=== PATIENT | male | born 1955 | race Caucasian/White ===

== ENCOUNTER 2021-08-27 08:35 | Emergency (ER) | payer MEDICARE, SELFPAY ==
--- NOTE | 2021-08-27 09:11 | ECG_ITS ---
APPROVED REPORT Exam: Resting ECG HR:70 bpm ECG Measurements Heart Rate 70 AXES WY 148 P 61 QRSd 104 QRS -11 QT 382 T 14 QTc 402 Conclusion SINUS RHYTHM LOW QRS VOLTAGE IN PRECORDIAL LEADS [QRS DEFLECTION < 1.0 mV IN CHEST LEADS] PATTERN CONSISTENT WITH PULMONARY DISEASE ABNORMAL ECG UNCONFIRMED REPORT Electronically signed by : Edgard Anglin MD 09/01/2021 21:49:50
[2021-08-27 09:14] VITALS: RESP 18; TEMP 36.7; O2SAT 96; BMI 42.5
--- NOTE | 2021-08-27 09:21 | HMH.EDUTC ---
[facility] Disposition Clinical Impression: Episode of syncope Qualifiers: Syncope type: unspecified Qualified Code(s): R55 - Syncope and collapse Sinusitis Qualifiers: Sinusitis location: unspecified location Chronicity: acute Recurrence: non-recurrent Qualified Code(s): J01.90 - Acute sinusitis, unspecified Disposition: Home, Self-Care Condition on Discharge: Good Instructions: Fainting, DI for Sinusitis Additional Instructions: You need to have a cardiac work up through an ER. We are unable to do that here in the [facility]. I strongly urge you to allow us to transfer you there. Follow up with your primary care physician. GO TO THE ER FOR ANY WORSENING SYMPTOMS OR CONCERNS Prescriptions: guaiFENesin [Mucinex 600mg tablet] 1 - 2 tab PO BIDP PRN #30 tab PRN Reason: Congestion Transmission Status: Pending to [facility] # Azithromycin [Z-Dano 250mg Tab*] 250 mg PO UD DOSE PK #6 tab Transmission Status: Pending to [facility] # Referrals: Provider,Referral, MD [Primary Care Provider] - Time of Disposition: :31 Medical Decision Making - Medical Records Medical records reviewed: No: I reviewed the patient's medical records. - Thierno Inquiry Pt receiving controlled substance: No Vital Signs: 08/27/21 09:14 Temperature 98.0 F Temperature Source Oral Respiratory Rate 18 02 Sat by Pulse Oximetry 96 - ECG Data Tracing #1 I reviewed this ECG and interpreted as documented below: Sinus Rhythm @ 70. ECG initial impression date: 08/27/21 ECG initial impression time: 09:15 ECG normal with no acute: arrhythmias, ischemia, conduction abnormalities, chamber hypertrophy Normal Sinus Rhythm: Yes ECG compared to prior tracings: there are no prior tracings available for comparison Medical Decision Narrative: His EKG showed a moderate intraventricular conduction delay. Otherwise, it was essentially normal. He denies any chest pain at this time. I tried to explain to him that it would be in his best interest to be evaluated in the ER for a cardiac workup. He refused and sign an AMA paper that he is aware of the risk of not doing this. He states that he is only here for treatment of a sinus infection and he does not want to be evaluated for the near syncopal episode that occurred yesterday. [facility] HPI - General Stated complaint: weak, felt like passing out Time Seen by Provider: 08/27/21 09:15 Description of Symptoms (Recalled from Triage Doc. by RN): patient comes in today for complaints of dizziness and weakness. patient states that he did not eat yesterday and almost passed out. patients friend states he thought it may have been his sugar. patient states his sinuses have been bothering him as well HEENT Symptoms (Recalled from RN notes): Yes Resp Symptoms (Recalled from RN notes): Yes Skin Symptoms (Recalled from RN notes): No MS Symptoms (Recalled from RN notes): No Functional Status (Recalled from RN notes): wnl - History of Present Illness Provider Complaint: He states that, yesterday, he had an approximately 20 minute period that he felt faint , broke out in a cold sweat, had nausea, and had to sit down in [employer]. Once he sit down and drank some gatorade, he started to feel better. He denies any chest pain during this episode, but his family does say that he had a period that he was breathing very heavily like he was short of breath. He denies any history of having previous episodes. At this time he is also c/o sinus congestion and having a sinus infection. He states that this began several days ago and he wears a cpap at night that makes it worse - Related Data Previous Rx's Medication Instructions Recorded Azithromycin [Z-Dano 250mg Tab*] 250 mg PO UD DOSE PK #6 tab 08/27/21 guaiFENesin [Mucinex 600mg tablet] 1 - 2 tab PO BIDP PRN #30 tab 08/27/21 - Worker's Comp Is this a Worker's Comp case?: No [facility] History - Hepatitis A Screen Attestation statement::
[2021-08-27 09:38] VITALS: BP 116/70; BP 121/67; BP 121/69; PULSE 67; PULSE 71; PULSE 77
[2021-08-27 09:40] VITALS: BP 121/67; PULSE 77; RESP 18; TEMP 36.7
[2021-08-28 01:01] LABS: POC Glucose,Bedside 90 (70-110)
== END 2021-08-27 09:40 | disposition home or self-care (01) ==
PROVIDERS: Emergency Provider Nurse Practitioner Family
DX: R55 Syncope and collapse (principal); J01.90 Acute sinusitis, unspecified
CPT/HCPCS: 82962; 93005; 99212; G0463